=== PATIENT | male | born 1960 | race Caucasian/White ===

== ENCOUNTER 2021-07-20 09:30 | Emergency (ER) | payer OTHER ==
[~2021-07-20] VITALS: Ht 167.6 cm; Wt 72.6 kg
[2021-07-20 10:17] LABS: BASOPHIL 1.1 % (0-2); EOSINOPHIL 4.4 % (0-5); HCT 44.6 % (42.0-52.0); MCH 32.3 pg (25.0-31.0); MCHC 33.6 g/dL (32.0-36.0); MCV 96.1 fL (78.0-100.0); MONOCYTE 9.2 % (0-12); MPV 11.8 fL (6.0-9.5); NEUTROPHIL 48.6 % (41-80); NRBC 0; PLT 129 K/uL (150-400); RBC 4.64 M/uL (4.70-6.00); RDW 12.8 % (11.5-14.0); WBC 7.6 K/uL (4.0-10.5)
[2021-07-20 10:46] LABS: BILIRUBIN - TOTAL 0.8 mg/dL (0.2-1.0); BUN/CREAT RATIO (CALC) 11.7 RATIO; CREATININE 1.28 mg/dL (0.67-1.17); GLOBULIN (CALCULATION) 3.8 g/dL; POTASSIUM 4.4 mmol/L (3.5-5.1); TOTAL PROTEIN 6.8 g/dL (6.4-8.2)
[2021-07-20 10:54] LABS: INFLUENZA A NAA NEGATIVE (NEGATIVE)
[2021-07-20 11:00] LABS: CORONAVIRUS 2019 SARS-COV-2 POSITIVE (NEGATIVE)
[2021-07-20] MEDS ORDERED: TESSALON PERLE100 M1 PO (13:51)
== END 2021-07-20 14:15 | disposition home or self-care (01) ==
LOC: FER 09:30
PROVIDERS: Internal Medicine
DX: U07.1 COVID-19 (principal); Z23 Encounter for immunization; F17.210 Nicotine dependence, cigarettes, uncomplicated
CPT/HCPCS: 36415; 71045; 80053; 84484; 85025; 93005; M0243; Q0244; U0002